=== PATIENT | male | born 1985 | race Caucasian/White ===

== ENCOUNTER → 2016-09-24 | Outpatient (CLI) | payer SELFPAY ==
[~2016-09-24] MED LIST: ADVIL200 MG PO; ATIVAN 1 MG1 MG PO; BUSPAR5 MG PO; FLUOXETINE HCL20 MG PO; IBUPROFEN800 MG PO; LAMICTAL25 MG PO; NORCO 5-325 TA1 EACH PO; NORVASC10 MG PO; OMEPRAZOLE40 MG PO; PEPCID20 MG PO; PERCOCET 5-3251 EACH PO; PRINIVIL OR ZES10 MG PO; PROZAC10 MG PO; TYLENOL325 MG PO; VALIUM5 MG PO; ZOLOFT100 MG PO; [UNRECOGNIZED DRUG - OTHER] PO
== END | disposition disaster alternative care site (69) ==
LOC: GRAD 15:33
DX: R10.11 Right upper quadrant pain (principal); K80.20 Calculus of gallbladder without cholecystitis without obstruction

== ENCOUNTER → 2016-09-30 | Day surgery (SDC) | payer SELFPAY ==
[~2016-09-30] VITALS: Ht 185.4 cm; Wt 108.7 kg
--- NOTE | ~2016-09-30 | OR ---
PATIENT'S NAME: JOEL REN [facility] AGE: 31 Y [address] ROOM: [place] [address] [place] [facility] [place]: 09/30/2016 OR/Procedure Report DISCHARGE DATE: FAMILY PHYSICIAN: Nguyễn Ponce MD ATTENDING PHYSICIAN: Shant Finch SURGEON: Shant Finch MD DIRECTOR OF COMMUNITY LIFE: DATE OF PROCEDURE: 09/30/2016 PREOPERATIVE DIAGNOSIS: Cholelithiasis with chronic cholecystitis. POSTOPERATIVE DIAGNOSIS: Cholelithiasis with chronic cholecystitis. PROCEDURE PERFORMED: Laparoscopic cholecystectomy. ANESTHESIA: General endotracheal. ESTIMATED BLOOD LOSS: 10 mL. SPECIMENS: Gallbladder. REASON FOR PROCEDURE: The patient is a 31-year-old gentleman who has had right upper quadrant pain, getting progressively worse for about the last year. An ultrasound showed cholelithiasis. His white count and liver function tests were normal. We discussed the risks and benefits of surgery versus ongoing observation. The patient elected to proceed with cholecystectomy. FINDINGS: The patient had a normal-sized cystic duct. There was some mild chronic gallbladder wall thickening. No signs of acute inflammation. PROCEDURE IN DETAIL: The patient was taken to the operating suite and placed in the supine position. After general endotracheal anesthesia was obtained, the abdomen was prepped with ChloraPrep and sterilely draped. Marcaine was infiltrated into the incision sites. A 2 cm transverse infraumbilical incision was made. The fascia was grasped and elevated, and a Veress needle was used to obtain a pneumoperitoneum. An 11 mm trocar was then passed through the abdominal wall. Next, three 5 mm subcostal trocars were all placed under direct visualization. The fundus of the gallbladder was grasped and elevated. A second grasper was placed on the infundibulum. Careful dissection was carried out through the neck area of the gallbladder. The cystic duct and cystic artery were skeletonized up to the gallbladder wall. The cystic duct was normal in size. Both structures were stapled proximally and distally and then divided with scissors. The gallbladder was then mobilized free of the liver bed with cautery. Once fully mobilized, the PATIENT'S NAME: JOEL REN [facility] AGE: 31 Y [address] ROOM: [place] [address] [place] [facility] [place]: 09/30/2016 OR/Procedure Report DISCHARGE DATE: FAMILY PHYSICIAN: Nguyễn Ponce MD ATTENDING PHYSICIAN: Shant Finch gallbladder was removed from the umbilicus. We scanned the abdomen. No other obvious abnormalities were seen, though the patient had a rather considerable omentum that obscured most visualization. The fascia at the umbilicus was closed with a Vicryl suture. The pneumoperitoneum was evacuated. The skin incisions were all closed with subcuticular Monocryl. Benzoin, Steri-Strips, and gauze dressings were applied. POSTPROCEDURE PLAN: The patient will be sent to Recovery and then discharged home when awake and alert. We will see him back in the office in 2 weeks. He can gradually resume diet and activities as tolerated. He was given a prescription for 30 [place] to help with pain control. MD ADITYA GARCIA/shanita /[id number] d: 09/30/16 1413 t: 10/04/16 1207, OPERATIVE SUMMARY
--- NOTE | 2016-09-30 08:11 | NUR ---
ONE IV ATTEMPT MADE PER NITISH ESIPNAL
== END | disposition disaster alternative care site (69) ==
LOC: GPOC 09-29 14:00 → GSDC 06:43
PROC: 0FT44ZZ Resection of Gallbladder, Percutaneous Endoscopic Approach (ICD-10-PCS; principal; 2016-09-30)
DX: K80.10 Calculus of gallbladder with chronic cholecystitis without obstruction (principal); F41.9 Anxiety disorder, unspecified; F31.9 Bipolar disorder, unspecified; I10 Essential (primary) hypertension; G47.33 Obstructive sleep apnea (adult) (pediatric); F17.200 Nicotine dependence, unspecified, uncomplicated; Z98.890 Other specified postprocedural states; Z79.899 Other long term (current) drug therapy
CPT/HCPCS: J0131; J0694; J1100; J2250; J2405; J3010; J7030

== ENCOUNTER → 2016-12-02 | Outpatient (CLI) | payer SELFPAY ==
[~2016-12-02] VITALS: Ht 185.4 cm; Wt 109.8 kg
--- NOTE | ~2016-12-02 | OR ---
PATIENT'S NAME: JOEL REN [facility] AGE: 31 Y [address] ROOM: [place] [address] LOCATION: [facility] ADMIT DATE: 12/02/2016 OR/Procedure Report DISCHARGE DATE: FAMILY PHYSICIAN: Nguyễn Ponce MD ATTENDING PHYSICIAN: Arcadio Bowen SURGEON: Yaneth Murray CRNA TIRE MOLD ENGRAVER: DATE OF PROCEDURE: 12/02/[address] Bowen. PROCEDURE PERFORMED: Therapeutic lumbar puncture. INDICATIONS: The patient was diagnosed with a pseudotumor cerebri with anticipated high CSF pressures. POSTOPERATIVE DIAGNOSIS: Pseudotumor cerebri. DESCRIPTION OF PROCEDURE: The patient was placed in the right lateral decubitus position, and the back was prepped and draped in a sterile fashion using Betadine. A sterile fenestrated drape was placed on the back to maintain sterility. 1% lidocaine was infiltrated into the skin and subcutaneous tissue in the area of the puncture with a 24-gauge needle. A 22- gauge Sprotte needle measuring 4 inches was advanced into the intrathecal space. Opening pressure was obtained per physician orders. Cerebral spinal fluid was clear. Four vials with 7 mL in 3 and 6 mL in 1 were collected while maintaining sterility. Closing pressure was obtained, per physician order, reading 12 cm. The level of the puncture was at L3-4. After specimens were collected, a sterile Band-Aid was applied to the site of the puncture. The patient was placed in the supine position. In addition to risks, benefits, and treatment options, the potential of infection was discussed prior to the procedure. Instruction regarding signs and symptoms of postdural puncture headache were reinforced. Report given to the registered nurse who assumed care postprocedure. 27 mL total CSF fluid was withdrawn to reduce the pressure to within normal limits as per physician order. DOE PHILLIPS/modl /[id number] d: 12/02/16 1506 t: 12/06/16 0733, OPERATIVE SUMMARY
== END | disposition disaster alternative care site (69) ==
LOC: GLAB 11:38 → GOPP 11:38 → GPOC 12:00
PROC: 0Q903ZZ Drainage of Lumbar Vertebra, Percutaneous Approach (ICD-10-PCS; principal; 2016-12-02)
DX: G93.2 Benign intracranial hypertension (principal); G91.0 Communicating hydrocephalus
CPT/HCPCS: J2001

== ENCOUNTER 2016-12-06 10:04 | Day surgery (SDC) | payer SELFPAY ==
[~2016-12-06] VITALS: Ht 185.4 cm; Wt 110.0 kg
--- NOTE | ~2016-12-06 | OR ---
PATIENT'S NAME: JOEL REN [facility] AGE: 31 Y [address] ROOM: [place] [address] LOCATION: [facility] ADMIT DATE: 12/06/2016 OR/Procedure Report DISCHARGE DATE: FAMILY PHYSICIAN: Nguyễn Ponce MD ATTENDING PHYSICIAN: Arcadio Bowen SURGEON: Arcadio Bowen MD TRANSPLANT NURSE PRACTITIONER: DATE OF PROCEDURE: 12/06/2016 PREOPERATIVE DIAGNOSIS: Hydrocephalus. POSTOPERATIVE DIAGNOSIS: Hydrocephalus. OPERATION PROPOSED AND PERFORMED: Right RESIDENTIAL SUBCONTRACTOR shunt. DESCRIPTION OF PROCEDURE: Under general anesthesia, the patient was positioned supine. The head tilted to the left. The right parietooccipital region of neck, chest, and abdomen were prepped and draped in the usual fashion. A semilunar incision was then carried out three fingerbreadths from the midline over the lambdoid suture. A rocio hole was carried out at this site. The dura was then cauterized and incised in a cruciate manner. Next, a subcutaneous tunnel was just carried out extending from the parieto-occipital incision to the epigastrium. The peritoneal catheter was passed through this subcutaneous tunnel. Next, the ventricular catheter was then placed in the lateral ventricle. CSF came out under quite a bit of pressure and a ventricular catheter was then connected to medium pressure valve opening pressure ranges from 51 to 110 mm of water. Next, the distal portion of the valve was then connected to the peritoneal catheter. We used the Bactiseal for both the ventricular as well as the peritoneal catheter. The patient's valve and flanges were then sutured to the pericranium. Next, attention was then directed to the epigastrium. We went through the layers of subcutaneous fat, rectus sheath got us to the preperitoneal fat, which we go through to get to the peritoneum. The peritoneal catheter was then passed through the hole. A hole we made in the peritoneum into the peritoneal cavity. The peritoneal catheter passed through easily without any kinking. Stitch was then placed to close the peritoneum around the tube. Wound was thoroughly irrigated with bacitracin irrigation and closed in layers, first the rectus sheath with 0 Vicryl, subcutaneous fatty layer with 0 Vicryl and 3-0 Vicryl as well as anel to bring the skin edges together. The parieto-occipital incision and the scalp was then closed in the usual two layer fashion. The patient tolerated the procedure well and was taken to the recovery room. PATIENT'S NAME: JOEL REN [facility] AGE: 31 Y [address] ROOM: [place] [address] LOCATION: [facility] ADMIT DATE: 12/06/2016 OR/Procedure Report DISCHARGE DATE: FAMILY PHYSICIAN: Nguyễn Ponce MD ATTENDING PHYSICIAN: Arcadio Bowen MD AEB/modl /[id number] d: 12/06/16 2303 t: 12/09/16 1514, OPERATIVE SUMMARY
[~2016-12-06 10:04] MED LIST changes: -PERCOCET 5-3251 EACH PO; -PRINIVIL OR ZES10 MG PO; -VALIUM5 MG PO; -[UNRECOGNIZED DRUG - OTHER] PO
--- NOTE | 2016-12-07 04:15 | NUR ---
Significant Event: PATIENT ALERT AND ORIENTED X 3. VSS. TAKING PO AND VOIDING WITHOUT DIFFICULTY. UP WITH 1 ASSIST - HELPS HIM. DRESSING TO RIGHT SIDE OF HEAD AND TO ABDOMEN HAVE A SMALL AMOUNT OF DRAINAGE ON BOTH DRESSINGS - ISLAND BARRIER DRESSINGS TO BOTH. C/O BLURRY VISION AND DIZZINESS - HE HAD BOTH PRE-OP. NEUROCHECKS WNL. PAIN CONTROLLED WITH NORCO AND MOTRIN LAST AT 0300. AND BABY AT BEDSIDE. SL TO L) WRIST INTACT. PLEASANT AND COOPERTIVE WITH CARES. POSSIBLE DISMISSAL TO HOME TODAY. Follow up:
[2016-12-07] MEDS ORDERED: PERCOCET 5-3251 EACH PO (11:12)
--- NOTE | 2016-12-07 12:30 | NUR ---
SPOKE TO PATIENT AND HIS SPOUSE AT THE BEDSIDE. INTRODUCED CM AND OUR ROLE. PATIENT VOICES CONCERNS ABOUT NOT HAVING INSURANCE AND WOULD LIKE TO APPLY OF DISABILITY. I MADE REFERRAL TO [facility] WITH [facility] AND ALSO GAVE HIM A FINICIAL ASSIT FORM.
--- NOTE | 2016-12-07 15:30 | NUR ---
RECEIVED REFERRAL THAT PATIENT TELLS HIS NURSE THAT HE DOES NOT HAVE MONEY TO PAY FOR HIS PERSOCET. HE GETS HIS MEDS FILLED AT [facility] [place]. I NOTIFIED THEM SOWMYAE TELL ME THAT THE PERCOCET WILL BE AROUNS 30.00 WHEN I SPEAK TO THE PATIENT ABOUT THIS HE TELLS ME THAT HE DOES NOT HAVE THE MONEY FOR THE MEDICATION. I NOTIFIED DEVIN THE FIELD SALES TRAINER OF AND SHE SUGGESTS THAT I CONTACT THE [facility] AND GET A $50.00 GIFT CARD AND GIVE IT TO THE PATIENT FOR HIS MEDS. I GOT PATIENT A $50.00 GIFT CARD FROM THE [employer] AND GAVE IT TO THE PATIENT TO USE TOWARDS HIS MEDICATION.
--- NOTE | 2016-12-07 16:41 | NUR ---
Significant Event:Patient dismissed to home with spouse assistance. Dressing intact to rt head and abdomen. C/O dizziness and peripheral vision blurriness. CSM WNL. Ambulates ad tonia. Gait steady. Patient and spouse voice understanding of dismissal instruction. Patient dismissed via w/c with dismissal instructions, rx and belongings. Accompanied by spouse. Follow up:
--- NOTE | 2016-12-07 16:51 | NUR ---
I reviewed and approve of charting by SN Juan Alberto
[2017-02-20] MEDS ORDERED: [UNRECOGNIZED DRUG - OTHER] PO (12:12)
== END 2016-12-07 16:10 | disposition disaster alternative care site (69) ==
LOC: GSDC 10:04 → GICU 10:04 → G3N 10:04 → GSDC 17:00 → G3N 19:27 → GSDC 12-07 16:10
PROC: 00160J6 Bypass Cerebral Ventricle to Peritoneal Cavity with Synthetic Substitute, Open Approach (ICD-10-PCS; principal; 2016-12-06)
DX: G91.9 Hydrocephalus, unspecified (principal); G93.2 Benign intracranial hypertension; G47.33 Obstructive sleep apnea (adult) (pediatric); Z79.899 Other long term (current) drug therapy
CPT/HCPCS: J0131; J0690; J1100; J1170; J2001; J2250; J2405; J7030; J7120

== ENCOUNTER 2016-12-10 18:07 | Emergency (ER) | payer SELFPAY ==
--- NOTE | ~2016-12-10 | ER ---
PATIENT'S NAME: JOEL REN [facility] AGE: 31 Y [address] ROOM: [place] [address] LOCATION: [facility] ADMIT DATE: 12/10/2016 ER/Outpatient Report DISCHARGE DATE: 12/10/2016 FAMILY PHYSICIAN: Nguyễn Ponce MD ATTENDING PHYSICIAN: Yefri Harden Admission date and time documented in the medical record. I saw the patient at 1820 hours. CHIEF COMPLAINT: Eye pain, weakness, nausea, and vomiting. HISTORY OF PRESENT ILLNESS: This patient is a 31-year-old male who was recently diagnosed with pseudotumor cerebri and hydrocephalus. The patient underwent a SEAM STEAMER shunt placement this past Tuesday. Dr. Bowen, neurosurgeon, did the procedure. The patient complains increased eye pain today. The eye pain is bilateral with left worse than the right. Does have some peripheral visual disturbance as far as blurriness. He has had some intermittent nausea with vomiting and some generalized weakness, especially in his legs. Denies any fever, chills, or sweats. Does have a headache. No ears, nose, throat, neck, spine, chest, or abdomen pain. No fall or trauma. There is some question of some optic nerve injury by history. HOME MEDICATIONS: See attached medication list. ALLERGIES: NONE. SOCIAL HISTORY: Nonsmoker and nondrinker. SIGNIFICANT PAST MEDICAL HISTORY: Hypertension, pseudotumor cerebri with hydrocephalus, and depression. OPERATIONS: Right SEAM STEAMER shunt, lumbar puncture, cholecystectomy, shoulder surgery, knee surgery, and inguinal herniorrhaphy x2. REVIEW OF SYSTEMS: All systems reviewed by me are negative with the exception of those discussed in the history of present illness. PHYSICAL EXAMINATION: PATIENT'S NAME: JOEL REN [facility] AGE: 31 Y [address] ROOM: [place] [address] LOCATION: [facility] ADMIT DATE: 12/10/2016 ER/Outpatient Report DISCHARGE DATE: 12/10/2016 FAMILY PHYSICIAN: Nguyễn Ponce MD ATTENDING PHYSICIAN: Yefri Harden VITAL SIGNS: Temperature 98.7 tympanic, pulse 85 and regular, respirations 16, blood pressure 150/95, and O2 saturation on room air 98%. HEAD: Normocephalic. Incisional area of the right occipital scalp is intact. No redness. No drainage. Healing nicely. EYES: Extraocular muscles intact. PERRL. EARS, NOSE, THROAT: Clear. Mucous membranes moist. Teeth, jaw intact. NECK: Negative. LUNGS: Clear. HEART: Regular. ABDOMEN: Soft. Good bowel tones. EXTREMITIES: Moves all 4 extremities. No peripheral edema or cyanosis. NEURO: Cranial nerves intact. No lateralizing signs. The patient is awake and cooperative. Motor and sensory intact. SKIN: Clear. As stated above, the right occipital scalp laceration is healing nicely. DIAGNOSTIC DATA: CT scan of the head showed no intracranial bleed, midline shift, mass effect, or skull fracture. He is postop shunt placement. The shunt is in good position. Ventricles are normal. CT scan was read by Radiology, see dictated transcribed report. DIAGNOSTIC DATA: CMS was normal except for a slightly elevated liver enzymes with an alkaline phosphatase of 236, AST 145, ALT 254. CPK was 37. CRP was 1.61. TSH was 1.84. [place] [address], 72 segs, 19 lymphs, 5 monos, 4 eos, and 1 baso. Hemoglobin 16.3, hematocrit 45.7, and platelet count 257,000. Sedimentation rate is slightly elevated at 18. PTT was 29, pro-time was 9.8, and INR 0.93. IMPRESSION: Bilateral eye pain postop ventriculoperitoneal shunt placement for pseudotumor cerebri and hydrocephalus. PLAN: I did discuss this patient with Dr. Bowen and Dr. Duggan, neurosurgeons. They did not offer any additional information as far as further testing at this time. The patient dismissed home. Observation. Activity as tolerated. Continue present home medications and care. Phenergan 25 mg tab as needed for nausea and vomiting. Follow up with personal physician as needed and Dr. Bowen in 2 weeks. Discussion ensued with the patient concerning my findings and recommendations, he understands. PATIENT'S NAME: JOEL REN [facility] AGE: 31 Y [address] ROOM: [place], [place] [address] LOCATION: [facility] ADMIT DATE: 12/10/2016 ER/Outpatient Report DISCHARGE DATE: 12/10/2016 FAMILY PHYSICIAN: Nguyễn Ponce MD ATTENDING PHYSICIAN: Yefri Harden MD ALICIA MATA/shanita /[id number] d: 12/11/16 0209 t: 12/11/16 1829, OUTPATIENT REPORT
[~2016-12-10 18:07] MED LIST changes: +PERCOCET 5-3251 EACH PO
[2016-12-10 18:59] LABS: BASOPHIL # 0.1 K/uL (0.0-0.2); BASOPHIL % 0.5 %; EOSINOPHIL # 0.4 K/uL (0.0-0.5); EOSINOPHIL % 3.7 %; HEMATOCRIT 45.7 % (37.0-53.0); HEMOGLOBIN 16.3 g/dL (12.0-17.0); IMMATURE GRANULOCYTE # 0.1 K/uL (0.0-0.3); IMMATURE GRANULOCYTE % 0.6 %; LYMPHOCYTE # 1.9 K/uL (0.8-4.0); LYMPHOCYTE % 18.6 %; MCH 29.6 pg (27.0-34.0); MCHC 35.7 gm/dL (32.0-36.5); MCV 83.1 fl (83.0-98.0); MONOCYTE # 0.5 K/uL (0.0-1.0); MONOCYTE % 4.7 %; MPV 9.9 fl (9.4-12.4); NEUTROPHIL # (ANC) 7.4 K/uL (1.4-9.0); NEUTROPHIL % 71.9 %; NRBC % 0 /100WBC (0-0.00); PLATELET COUNT 257 K/uL (150-450); RDW-CV 12.3 % (11.9-14.6); WBC 10.3 K/uL (4.0-11.0)
[2016-12-10 19:15] LABS: INR - (THERAPEUTIC) 0.93 (0.92-1.07); PROTIME 9.8 SECONDS (9.8-11.4); PTT 29 SECONDS (25-32)
[2016-12-10 19:20] LABS: ALK PHOS 236 IU/L (33-138); ALT 254 IU/L (12-78); ANION GAP 10.9 (10.0-19.0); AST 145 IU/L (10-40); BLOOD UREA NITROGEN 14 mg/dL (6-24); CALCIUM 9.1 mg/dL (8.5-10.5); CHLORIDE 103 mMol/L (96-110); CO2 28 mMol/L (22-32); CPK 37 IU/L (35-332); CREATININE 0.8 mg/dL (0.6-1.3); ESTIMATED GFR (MDRD EQUATION) > 60; POTASSIUM 3.9 mMol/L (3.7-5.1); SODIUM 138 mMol/L (135-145); TOTAL BILIRUBIN 0.4 mg/dL (0.0-1.5); TOTAL PROTEIN 7.5 g/dL (6.0-8.4)
[2017-02-20] MEDS ORDERED: [UNRECOGNIZED DRUG - OTHER] PO (12:12)
== END 2016-12-10 20:26 | disposition disaster alternative care site (69) ==
LOC: GMED 18:07
PROVIDERS: Emergency Medicine
DX: H57.13 Ocular pain, bilateral (principal); G93.2 Benign intracranial hypertension; G91.9 Hydrocephalus, unspecified; F32.9 Major depressive disorder, single episode, unspecified; Z90.49 Acquired absence of other specified parts of digestive tract; Z98.890 Other specified postprocedural states; Z79.899 Other long term (current) drug therapy; Z98.2 Presence of cerebrospinal fluid drainage device

== ENCOUNTER 2017-02-18 13:13 | Emergency (ER) | payer SELFPAY ==
--- NOTE | ~2017-02-18 | ER ---
PATIENT'S NAME: JOEL REN [facility] AGE: 31 Y [address] ROOM: [place] [address] LOCATION: ED ADMIT DATE: 02/18/2017 ER/Outpatient Report DISCHARGE DATE: FAMILY PHYSICIAN: Nguyễn Ponce MD ATTENDING PHYSICIAN: Mark Anthony Santos Time of Patient's Arrival: 1313 hours. Time of Patient's Evaluation: 1320 hours. CHIEF COMPLAINT: Shunt problems, chest pain, harmful thoughts. HISTORY OF PRESENT ILLNESS: This is a 31-year-old male who presents to the ER with his who states that he feels like he is having troubles with his shunt because he has multiple headache all the time. He also states he has chest discomfort and he is suffering from depression. He states that he has been dealing with chronic headache for the past 5 years. He recently had a shunt placed by Dr. Bowen in November. He states that he also gets an occasional throbbing sharp pain in his right chest, that aches across his lower abdomen. The patient has not been running any fevers at home. He states he has dry cough and nausea. No vomiting, no constipation issues. He states that all of the medical illnesses that he has makes him feel very depressed. He states that he feels like he thinks about all the time and he feels like maybe it would be better in he were not around. His states that he has made suicidal expressions for her and has formulated a plan. The patient currently states he does not have a plan right now to commit suicide despite the fact that he has made these threats recently. The states that they called [facility] today to tell them that he was having thoughts of harming other people as well. ALLERGIES: NO KNOWN ALLERGIES. MEDICATIONS: Please see medication list in nurse's notes. PAST MEDICAL HISTORY: 1. Migraines. 2. Bipolar anxiety. 3. Hypertension. 4. Depression. 5. Acid reflux. 6. Pseudotumor cerebri. 7. 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 PATIENT'S NAME: JOEL REN [facility] AGE: 31 Y [address] ROOM: [place] [address] LOCATION: ED ADMIT DATE: 02/18/2017 ER/Outpatient Report DISCHARGE DATE: FAMILY PHYSICIAN: Nguyễn Ponce MD ATTENDING PHYSICIAN: Mark Anthony Santos PAST SURGICAL HISTORY: He has had cholecystectomy, shoulder surgery, knee surgery, and inguinal hernial repair x2. SOCIAL HISTORY: Denies any smoking, drug, or alcohol use. REVIEW OF SYSTEMS: All systems were reviewed and were negative with the exception of those discussed in the HPI. PHYSICAL EXAMINATION: VITAL SIGNS: Height 6 feet 1 inch stated, weight 109.8 kg taken, blood pressure is 155/87, pulse 104, respirations 16, temperature 97.1 degrees tympanically, and saturations 94% on room air. Washburn Coma Score is 15. GENERAL: Alert male, in no acute distress. He does not make good eye contact during examination. HEENT: Head: Normocephalic. Eyes: Pupils are equal and reactive to light. Ears: TMs display good light reflexes bilaterally. Throat: No exudates or erythema. Does display moist mucous membranes. LUNGS: Clear to auscultation bilaterally. No wheezes or crackles. HEART: Regular rate and rhythm. ABDOMEN: Soft, it is nontender. He has good bowel sounds throughout. No masses are palpated. EXTREMITIES: No clubbing or cyanosis. He has full range of motion of all limbs. SKIN: Warm, dry, and intact. LABORATORY DATA: CBC: White count is 9.6, hemoglobin is 16.4, platelets are 209. INR is 0.95. CMS was unremarkable. Alkaline phosphatase 151, AST 16, ALT 35. Magnesium is 2.0. CPK is 74, CK-MB is 2.9, troponin I is less than 0.040. Alcohol is less than 0.010. Acetaminophen is less than 2.0. Salicylate is less than 2.8. CRP is 1.05. TSH is 1.100. Urinalysis was positive for benzodiazepines, negative for all others. Urinalysis is negative for any infection. CT scan of his head was negative. Sedimentation rate was 8. EKG shows sinus rhythm. IMPRESSION: 1. Chronic headache with history of hydrocephalus and ventriculoperitoneal shunt. 2. Chest discomfort. 3. Depression with harmful thoughts. ASSESSMENT AND PLAN: We did have the Adis Gimenez send over a therapist to evaluate the patient. PATIENT'S NAME: JOEL REN [facility] AGE: 31 Y [address] ROOM: [place] [address] LOCATION: [facility] ADMIT DATE: 02/18/2017 ER/Outpatient Report DISCHARGE DATE: FAMILY PHYSICIAN: Nguyễn Ponce MD ATTENDING PHYSICIAN: Mark Anthony Santos They initially state that they felt like they could do an action plan with him at home, bit the got extremely upset and wanted him to be admitted. The patient and his began having got in a verbal altercation in the room, so we did separate the patient from his and called [facility]. [facility] spent several minutes with the patient and the patient's along with a mental health provider. It was decided best that the patient be inpatient at [facility] [place]. The patient was felt committal to this after he spoke with the police officers. We did give report over to Adis Gimenez regarding the patient, and the patient's father will be taking the patient over to [facility] and police escorted over there. The patient and the patient's understand and agree with care. CARLOS CARRASCO PA-C FOR DO GUILLERMO CONRAD/modl /[id number] d: 02/19/17201 t: 02/26/176, OUTPATIENT REPORT
[2017-02-18 13:58] LABS: BILIRUBIN URINE NEGATIVE (NEGATIVE); BLOOD URINE NEGATIVE /UL (NEGATIVE); COLOR URINE YELLOW (YELLOW); GLUCOSE URINE NEGATIVE (NEGATIVE); KETONE URINE NEGATIVE (NEGATIVE); LEUKOCYTES URINE NEGATIVE /UL (NEGATIVE); NITRITE URINE NEGATIVE (NEGATIVE); PH URINE 6.5 (4.0-8.0); PROTEIN URINE 15 mg/dL (NEGATIVE); TURBIDITY URINE CLEAR (CLEAR); UROBILINOGEN URINE NORMAL (NORMAL)
[2017-02-18 14:05] LABS: BACTERIA URINE NEGATIVE (NEGATIVE); EPITHELIAL URINE RARE #/HPF (NEGATIVE); RBC URINE NEGATIVE #/HPF (NEGATIVE); WBC URINE RARE #/HPF (NEGATIVE)
[2017-02-18 14:16] LABS: BARBITURATE NEGATIVE (NEGATIVE); COCAINE NEGATIVE (NEGATIVE); OPIATES NEGATIVE (NEGATIVE)
[2017-02-18 14:17] LABS: AMPHETAMINE NEGATIVE (NEGATIVE)
[2017-02-18 14:24] LABS: BASOPHIL # 0.1 K/uL (0.0-0.2); BASOPHIL % 0.5 %; EOSINOPHIL # 0.1 K/uL (0.0-0.5); EOSINOPHIL % 0.9 %; HEMATOCRIT 45.4 % (37.0-53.0); HEMOGLOBIN 16.4 g/dL (12.0-17.0); IMMATURE GRANULOCYTE % 0.4 %; LYMPHOCYTE # 2.3 K/uL (0.8-4.0); LYMPHOCYTE % 23.6 %; MCH 29.7 pg (27.0-34.0); MCHC 36.1 gm/dL (32.0-36.5); MCV 82.2 fl (83.0-98.0); MONOCYTE # 0.5 K/uL (0.0-1.0); MONOCYTE % 5.1 %; MPV 10.5 fl (9.4-12.4); NEUTROPHIL # (ANC) 6.7 K/uL (1.4-9.0); NEUTROPHIL % 69.5 %; NRBC % 0 /100WBC (0-0.00); PLATELET COUNT 209 K/uL (150-450); RBC 5.52 M/uL (4.00-6.00); RDW-CV 12.9 % (11.9-14.6); WBC 9.6 K/uL (4.0-11.0)
[2017-02-18 14:32] LABS: INR - (THERAPEUTIC) 0.95 (0.92-1.07); PTT 30 SECONDS (25-32)
[2017-02-18 14:42] LABS: ALBUMIN 4.1 gm/dL (3.5-5.0); ALK PHOS 151 IU/L (33-138); ALT 35 IU/L (12-78); AST 16 IU/L (10-40); BLOOD UREA NITROGEN 20 mg/dL (6-24); CALCIUM 9.1 mg/dL (8.5-10.5); CHLORIDE 108 mMol/L (96-110); CO2 27 mMol/L (22-32); CPK 74 IU/L (35-332); CREATININE 0.9 mg/dL (0.6-1.3); SODIUM 140 mMol/L (135-145); TOTAL PROTEIN 7.4 g/dL (6.0-8.4)
[2017-02-18 14:45] LABS: TOTAL BILIRUBIN 0.7 mg/dL (0.0-1.5)
[2017-02-18] MEDS ORDERED: PRINIVIL OR ZES10 MG PO (20:11)
[2017-02-18] MEDS ORDERED: VALIUM5 MG PO (20:11)
[2017-02-20] MEDS ORDERED: [UNRECOGNIZED DRUG - OTHER] PO (12:12)
== END 2017-02-18 16:33 | disposition disaster alternative care site (69) ==
LOC: GMED 13:13
PROVIDERS: Physician Assistant Medical
DX: R07.89 Other chest pain (principal); R51 Headache; G89.29 Other chronic pain; F32.9 Major depressive disorder, single episode, unspecified; G91.9 Hydrocephalus, unspecified; I10 Essential (primary) hypertension; K21.9 Gastro-esophageal reflux disease without esophagitis; Z98.2 Presence of cerebrospinal fluid drainage device; Z90.49 Acquired absence of other specified parts of digestive tract; Z98.890 Other specified postprocedural states; Z79.1 Long term (current) use of non-steroidal anti-inflammatories (NSAID); Z79.899 Other long term (current) drug therapy
CPT/HCPCS: G0480